=== PATIENT | male | born 1975 | race Caucasian/White ===

== ENCOUNTER 2024-11-15 19:46 | Emergency (ER) | payer OTHER ==
[2024-11-15] MEDS: predniSONE 20 MG Tab PO ONE (20:57)
[2024-11-15] MEDS: diphenhydrAMINE 25 MG Cap PO ONE (20:57)
[2024-11-15] MEDS: diphenhydrAMINE 25 MG/10 ML Cup PO ONE (20:59)
== END 2024-11-15 23:08 | disposition home or self-care (01) ==
LOC: JP.ED 19:46
DX: L29.9 Pruritus, unspecified (principal); R22.1 Localized swelling, mass and lump, neck; T78.1XXA Other adverse food reactions, not elsewhere classified, initial encounter
CPT/HCPCS: 99283; A9270; J7512

== ENCOUNTER 2025-01-20 21:09 | Emergency (ER) | payer OTHER ==
[2025-01-20] MEDS: EPINEPHrine 1 MG/ML SDV IM ONE (21:17)
[2025-01-20] MEDS ORDERED: Loratadine 10 MG Tab PO ONE (21:20)
[2025-01-20] MEDS: Loratadine 10 MG Tab PO ONE (21:32)
== END 2025-01-20 23:35 | disposition home or self-care (01) ==
LOC: JP.ED 21:09
DX: R06.02 Shortness of breath (principal); I10 Essential (primary) hypertension; Z79.899 Other long term (current) drug therapy
CPT/HCPCS: 96372; 99284; A9270; J0171

== ENCOUNTER 2025-06-27 06:36 | Day surgery (SDC) | payer OTHER ==
[2025-06-27] MEDS: Lactated Ringers 1,000 ML IV SCH (07:32)
[2025-06-27] MEDS ORDERED: fentaNYL 100 MCG/2 ML SDV ONE (07:36)
[2025-06-27] MEDS ORDERED: Propofol 200 MG/20 ML SDV ONE (07:36)
[2025-06-27] MEDS ORDERED: Midazolam 1 MG/ML 2 ML SDV ONE (07:36)
== END 2025-06-27 10:05 | disposition home or self-care (01) ==
LOC: JP.SDS 06:36
PROVIDERS: ATTEND Surgery
DX: K63.89 Other specified diseases of intestine (principal); K62.89 Other specified diseases of anus and rectum; Z88.8 Allergy status to other drugs, medicaments and biological substances
CPT/HCPCS: 00811; 45380; J2250; J2704; J3010; J7120; 88305